=== PATIENT | male | born 1995 | race Caucasian/White ===

== ENCOUNTER → 2021-09-16 | Outpatient (CLI) | payer BC ==
--- NOTE | 2021-09-16 07:41 | CT ---
EXAMINATION TYPE: CT sinus wo con DATE OF EXAM: 09/16/2021 COMPARISON: NONE HISTORY: Chronic sinusitis CT DLP: 693.00 mGycm. Automated Exposure Control for Dose Reduction was Utilized. TECHNIQUE: CT scan of the sinuses is performed without contrast, axial images are obtained, coronal r eformatted images are also reviewed. FINDINGS: Focal anterior mucosal thickening right sphenoid sinus axial image 29. Some patchy fluid si gnal in the posterior ethmoid sinuses bilaterally for reference coronal image 27 on the right. The o stiomeatal complex is patent bilaterally on coronal image 19. Visualized portion of mastoid air cells show some deep cerumen bilaterally. The globes are intact bi laterally. IMPRESSION: Patchy bilateral posterior ethmoid acute sinusitis. Mild anterior right sphenoid chronic sinusitis.
== END | disposition home or self-care (01) ==
LOC: RADCTMAIN 06:39
PROVIDERS: ATTEND Otolaryngology
DX: J32.9 Chronic sinusitis, unspecified (principal); J30.89 Other allergic rhinitis
CPT/HCPCS: 70486

== ENCOUNTER → 2021-12-27 | Outpatient (CLI) | payer BC ==
[2021-12-27 16:34] LABS: Basophils # (A) 0.04 X 10*3/uL (0.00-0.10); Basophils % (A) 0.6 %; Eosinophils # (A) 0.11 X 10*3/uL (0.04-0.35); Eosinophils % (A) 1.6 %; HCT 46.3 % (39.6-50.0); HGB 15.9 g/dL (13.0-17.0); Immature Grans, Automated 0.3 %; Lymphocytes # (A) 2.86 X 10*3/uL (0.90-5.00); Lymphocytes % (A) 40.7 %; MCH 31.4 pg (27.0-32.0); MCHC 34.3 g/dL (32.0-37.0); MCV 91.5 fL (80.0-97.0); Mean Platelet Volume 10.2 fL (9.5-12.2); Monocytes # (A) 0.49 X 10*3/uL (0.20-1.00); NRBC Per 100 WBC 0 /100 WBCS (0.0-0.0); Neutrophils % (A) 49.8 %; Platelet Count 318 X 10*3/uL (140-440); RBC 5.06 X 10*6/uL (4.40-5.60); RDW 12.5 % (11.5-14.5); WBC 7.02 X 10*3/uL (4.50-10.00)
[2021-12-27 17:07] LABS: ALT 32 U/L (10-49); AST 24 U/L (14-35); African American GFR (CKD) 138.7 (60.0-200.0); Albumin 4.8 g/dL (3.8-4.9); Albumin/Globulin Ratio 1.98 (1.60-3.17); Alkaline Phosphatase 74 U/L (41-126); BUN/Creat Ratio 15.43 Ratio (12.00-20.00); Blood Urea Nitrogen 13.5 mg/dL (9.0-27.0); Calcium 9.6 mg/dL (8.7-10.3); Carbon Dioxide 23.1 mmol/L (20.0-27.5); Chloride 105 mmol/L (96-109); Chol/HDL Ratio 7.47 Ratio; Globulin 2.4 g/dL (1.6-3.3); Glucose 86 mg/dL (70-110); Non-African American GFR(CKD) 119.7 (60.0-200.0); Potassium 4.4 mmol/L (3.5-5.5); Sodium 140 mmol/L (135-145); Total Protein 7.2 g/dL (6.2-8.2)
[2021-12-27 17:18] LABS: Hepatitis A Antibody IgM Nonreactive (Nonreactive); Hepatitis B Core IgM Nonreactive (Nonreactive); Hepatitis B Surface Antigen Nonreactive (Nonreactive); Hepatitis C IgG Antibody Nonreactive (Nonreactive)
[2021-12-27 17:33] LABS: Appearance,Urine Clear (Clear); Bilirubin,Urine Negative (Negative); Blood,Urine Negative (Negative); Color,Urine Yellow (Yellow); Ketones,Urine Negative (Negative); Nitrite,Urine Negative (Negative); PH, Urine 6.5 (5.0-8.0); Specific Gravity,Urine 1.026 (1.001-1.030)
== END | disposition home or self-care (01) ==
LOC: LABWHC1 09:56
PROVIDERS: ATTEND Family Medicine
DX: Z00.00 Encounter for general adult medical examination without abnormal findings (principal); Z11.3 Encounter for screening for infections with a predominantly sexual mode of transmission
CPT/HCPCS: 36415; 80053; 80061; 80074; 81003; 85025; 86780; 87390; 87491; 87591

== ENCOUNTER → 2022-09-07 | Outpatient (CLI) | payer BC ==
--- NOTE | 2022-09-07 22:16 | CT ---
EXAMINATION TYPE: CT sinus wo con DATE OF EXAM: 09/07/2022 COMPARISON: 09/16/2021 HISTORY: Chronic sinusitis, possible surgical planning CT DLP: 468 mGycm CONTRAST: 0 mL of Isovue 300 The paranasal sinuses are examined in the axial plane at 2 mm thick sections. Reconstructed images i n the coronal plane were obtained. There is dental amalgam scatter artifact The maxillary sinuses are clear. The ethmoid air cells are clear. The sphenoid sinuses are clear. T here is some minimal mucosal thickening within an anterior right sphenoid sinus which was present pre viously and is less apparent on the current exam. The frontal sinuses are clear. Mastoid air cells a re clear. The septum is evaluated. There is septal deviation to the right. Right septal spur is noted. The ostiomeatal units are patent. IMPRESSIONS: 1. Very minimal mucosal thickening within an anterior right sphenoid sinus opacification less appare nt than on comparison
== END | disposition home or self-care (01) ==
LOC: RADCTMAIN 17:55
PROVIDERS: ATTEND Otolaryngology
DX: J32.2 Chronic ethmoidal sinusitis (principal); J32.3 Chronic sphenoidal sinusitis
CPT/HCPCS: 70486

== ENCOUNTER → 2022-11-21 | Outpatient (CLI) | payer BC ==
[2022-11-21 13:49] LABS: Basophils # (A) 0.04 X 10*3/uL (0.00-0.10); Basophils % (A) 0.6 %; Eosinophils # (A) 0.06 X 10*3/uL (0.04-0.35); HCT 53.3 % (39.6-50.0); HGB 18.3 d/dL (13.0-17.0); Lymphocytes # (A) 2.17 X 10*3/uL (0.90-5.00); Lymphocytes % (A) 34.9 %; MCH 31.8 pg (27.0-32.0); MCHC 34.3 d/dL (32.0-37.0); MCV 92.7 FL (80.0-97.0); Monocytes # (A) 0.42 X 10*3/uL (0.20-1.00); Monocytes % (A) 6.8 %; NRBC Per 100 WBC 0 X 10*3/uL (0.00-0.01); Neutrophils # (A) 3.52 X 10*3/uL (1.80-7.70); Neutrophils % (A) 56.5 %; Platelet Count 317 X 10*3/uL (140-440); RBC 5.75 X 10*6/uL (4.40-5.60); RDW 12.2 % (11.5-14.5); WBC 6.22 X 10*3/uL (4.50-10.00)
[2022-11-21 14:55] LABS: Erythrocyte Sedimentation Rate <1 mm/Hr (0-15)
[2022-11-24 00:11] LABS: Gliadin AB IgA, Deaminated Negative (Negative); Gliadin AB IgA, Unit <0.5 U/mL; Gliadin AB IgG, Deaminated Negative (Negative); Gliadin AB IgG, Unit <0.4 U/mL
== END | disposition home or self-care (01) ==
LOC: LABWHC1 08:50
PROVIDERS: ATTEND Internal Medicine Gastroenterology
DX: K52.9 Noninfective gastroenteritis and colitis, unspecified (principal)
CPT/HCPCS: 36415; 83516; 85025; 85652; 86140